=== PATIENT | female | born 1960 | race Caucasian/White ===

== ENCOUNTER 2017-02-05 06:32 | Inpatient (IN) | payer BC ==
[~2017-02-05] VITALS: Ht 163.8 cm; Wt 57.6 kg
[2017-02-05] VITALS (17 sets, daily range): BP systolic 111–144; BP diastolic 66–89
--- NOTE | 2017-02-05 06:12 | Anethesia Preoperative Eval ---
Anesthesia Pre-op PMH/ROS General Date of Evaluation: Feb 05, 2017 Anesthesiologist: Juna Alberto ASA Score: ASA 2 Mallampati Score Class I : Soft palate, uvula, fauces, pillars visible Class II: Soft palate, uvula, fauces visible Class III: Soft palate, base of uvula visible Class IV: Only hard plate visible Mallampati Classification: Class II Surgeon: Apple Diagnosis: Ovarian cysts Surgical Procedure: Open BSO with diagnostic D&C hysteroscopy Anesthesia History: none Family History: no anesthesia problems Allergies: Coded Allergies: PENICILLINS (Verified Allergy, Intermediate, 02/05/17) yeast infection CODEINE (Verified Adverse Reaction, Unknown, vomiting, 02/04/17) Medications: see eMAR Past Medical History Cardiovascular: Reports: other - HLD, Denies: HTN, CAD, [place], valve dz, arrhythmia Pulmonary: Denies: asthma, COPD, MYRA, other Gastrointestinal/Genitourinary: Reports: other - large ovarian cyst, Denies: GERD, CRI, ESRD Neurologic/Psychiatric: Reports: depression/anxiety, Denies: dementia, CVA, TIA, other Endocrine: Denies: DM, hypothyroidism, steroids, other HEENT: Denies: cataract (L), cataract (R), glaucoma, [place] (L), [place] (R), other Hematology/Immune: Denies: anemia, DVT, bleeding disorder, other Musculoskeletal/Integumentary: Denies: OA, RA, DJD, DDD, edema, other PSxH Narrative: Left cataract/cornea transplant Anesthesia Pre-op Phys. Exam Physician Exam see chart Constitutional: NAD Cardiovascular: RRR Respiratory: CTA Airway Exam Mallampati Score: Class II MO: full ROM: full Teeth: intact Anesthesia Pre-op A/P Labs see chart Studies Pre-op Studies: EKG - sr Risk Assessment & Plan Assessment: ASA II Plan: GA Status Change Before Surgery: No Pre-Antibiotics Drug: Cefoxitin 2g Given Within 1 Hr of Incision: Yes Time Given: 07:50 JUDIT BROWN M.D. Feb 05, 2017 06:12
[~2017-02-05 06:32] MED LIST: ALPRAZOLAM1 M2 ORAL; CRESTOR10 M1 ORAL; cefOXitin Sod 2 GM in D5W 55 ML IVPB ONE
--- NOTE | 2017-02-05 07:29 | Pre-Procedure Note/Attestation ---
Pre-Procedure Note/Attestation Complete Prior to Procedure Planned Procedure: not applicable Procedure Narrative: Laparoscopic bilateral salpingoopherectomies, possible laparotomy,possible hysterectomy, possible hysteroscopy Attestation I attest that I discussed the nature of the procedure; its benefits; risks and complications; and alternatives (and the risks and benefits of such alternatives ), prior to the procedure, with the patient (or the patient's legal admitting representative). I attest that, if there was a reasonable possibility of needing a blood transfusion, the patient (or the patient's legal admitting representative) was given the [facility] standardized written summary, pursuant to the Dexter Lauryn Blood Safety Act ([place] Health and Safety Code # 1645, as amended). I attest that I re-evaluated the patient just prior to the surgery and that there has been no change in the patient's H&P, except as documented below: GARTH LEMUS Feb 05, 2017 07:29
[2017-02-05] MEDS ORDERED: LR 1000ml ONE (07:30)
[2017-02-05] MEDS ORDERED: Sterile Water Irrig 1000ml IRRIG ONE (07:30)
[2017-02-05] MEDS ORDERED: Metoclopramide 10mg/2ml Inj IVP PRN ×2 (07:30→08:15)
[2017-02-05] MEDS ORDERED: Lidocaine 1% MPF 10mg/ml 5ml ONE (07:30)
[2017-02-05] MEDS ORDERED: Tylenol #3 tab (300mg/30mg) ORAL PRN (07:30)
[2017-02-05] MEDS ORDERED: Ketorolac 30mg Inj ONE (07:30)
[2017-02-05] MEDS ORDERED: fentaNYL 100 mcg/2 mL IV ONE (07:30)
[2017-02-05] MEDS ORDERED: Dexamethasone 4mg/ml vial ONE (07:30)
[2017-02-05] MEDS ORDERED: Metoclopramide 10mg/2ml Inj ONE (07:30)
[2017-02-05] MEDS ORDERED: Norco 5mg/325mg tab ORAL PRN (07:30)
[2017-02-05] MEDS ORDERED: Midazolam 2mg/2ml Inj ONE (07:30)
[2017-02-05] MEDS ORDERED: Zemuron 50mg/5ml Inj IV ONE (07:30)
[2017-02-05] MEDS ORDERED: DiphenhydrAMINE 50mg/ml Inj IVP PRN ×2 (07:30→08:15)
[2017-02-05] MEDS ORDERED: Propofol 200mg/20ml IV ONE (07:30)
[2017-02-05] MEDS ORDERED: Ropivacaine 5mg/ml Vial 30ml INJ ONE ×2 (07:31→10:17)
[2017-02-05] MEDS ORDERED: NS Irrig 1000ml IRRIG ONE (07:45)
[2017-02-05] MEDS ORDERED: cefOXitin 2gm Inj ONE (07:47)
[2017-02-05] MEDS ORDERED: LR 1000ml 1,000 ML IVLG SCH (08:08)
--- NOTE | 2017-02-05 08:08 | Immediate Post-Op Evaluation ---
Immediate Post-Op Evalulation Immediate Post-Op Evalulation Procedure: Laparoscopic BSO, D&C hysteroscopy Date of Evaluation: Feb 05, 2017 Time of Evaluation: 10:49 IV Fluids: 1.2L Blood Products: 0 Estimated Blood Loss: 50 Urinary Output: 200 Blood Pressure Systolic: 111 Blood Pressure Diastolic: 66 Pulse Rate: 91 Respiratory Rate: 16 O2 Sat by Pulse Oximetry: 100 Temperature (Fahrenheit): 97.4 Pain Score (1-10): 0 Nausea: No Vomiting: No Complications 0 Patient Status: awake, reacts, patent, none Hydration Status: adequate Drug: Cefoxitin 2g Given Within 1 Hr of Incision: Yes Time Given: 07:50 JUDIT BROWN M.D. Feb 05, 2017 08:08
--- NOTE | 2017-02-05 08:10 | 48 Hour Post Anesthesia Eval ---
Post Anesthesia Evaluation Procedure: Laparoscopic BSO, D&C hysteroscopy Date of Evaluation: Feb 05, 2017 Airway: patent Nausea: No Vomiting: No Pain Intensity: 0 Hydration Status: adequate Cardiopulmonary Status: at baseline Mental Status/LOC: patient returned to baseline Post-Anesthesia Complications: 0 Follow-up care needed: ready to discharge JUDIT BROWN M.D. Feb 05, 2017 08:09
[2017-02-05] MEDS ORDERED: Ketorolac 30mg Inj IV PRN (08:15)
[2017-02-05] MEDS ORDERED: fentaNYL 100 mcg/2 mL IV PRN (08:15)
[2017-02-05] MEDS ORDERED: Midazolam 2mg/2ml Inj IVP PRN (08:15)
[2017-02-05] MEDS ORDERED: LORazepam Inj 2mg/ml 1ml IV PRN (08:15)
[2017-02-05] MEDS: D5 1/2NS 1,000 ML IV SCH (13:30)
[2017-02-05] MEDS: HYDROmorphone 1mg/ml Carpuject SUBQ PRN (14:54)
--- NOTE | 2017-02-05 18:20 | General Surgery Progress Note ---
General Surgery-Progress Note Subjective Symptoms: improved, tolerating diet, voiding well, passing flatus Objective Last 24 Hour Vital Signs Date Time Temp Pulse Resp B/P (MAP) Pulse Ox O2 Delivery O2 Flow Rate FiO2 02/05/17 14:33 97.6 74 19 136/89 Nasal Cannula 3.0 02/05/17 14:03 97.5 76 18 131/81 Nasal Cannula 2.0 02/05/17 13:33 97.2 67 18 125/77 97 Nasal Cannula 2.0 02/05/17 12:30 97.0 72 18 132/75 100 Nasal Cannula 3.0 02/05/17 12:15 69 17 128/79 100 Nasal Cannula 3.0 02/05/17 12:00 74 18 137/83 100 Nasal Cannula 3.0 02/05/17 11:45 71 16 131/77 98 Nasal Cannula 3.0 02/05/17 11:30 74 18 128/82 98 Nasal Cannula 3.0 02/05/17 11:20 78 18 134/86 100 Nasal Cannula 3.0 02/05/17 11:10 73 21 144/85 100 Simple Mask 6.0 02/05/17 11:00 82 22 139/85 100 Simple Mask 6.0 02/05/17 10:55 83 19 124/82 100 Simple Mask 6.0 02/05/17 10:50 75 20 127/76 100 Simple Mask 6.0 02/05/17 10:45 91 16 100 02/05/17 10:44 97.4 83 17 111/66 100 Simple Mask 6.0 02/05/17 07:36 97.7 73 20 130/78 100 Room Air I&O Intake and Output 02/05/17 02/06/17 19:00 07:00 Intake Total 2610 ml Output Total 1350 ml Balance 1260 ml Intake Oral 710 ml IV Total 1900 ml Output Urine Total 1300 ml Estimated Blood Loss 50 ml # Voids 2 Dressing: dry Drains: none Extremities: no edema, no tenderness, no cyanosis Plan Additional Comments 23 hour hold discharge in am home with frient history of ETOH consumption and anxiety -- took xanax in the past GARTH LEMUS Feb 05, 2017 18:20
--- NOTE | 2017-02-05 18:23 | Brief Operative Note ---
Immediate Post Operative Note Operative Note Pre-op Diagnosis: left adnexal mass Procedure: laparoscopy, hysteroscopy dilation and curettage, explarotory laparotomy bilateral salpingoopherectomy Post-op Diagnosis: left ovarian mass c/w fibroma Surgeon: anu Pressure Tester: CHRIS Anesthesiologist: STEPHANIE Anesthesia: general Specimen: yes Complications: none Condition: stable Fluids: 2L Estimated Blood Loss: volume - 100CC Drains: none Implant(s) used?: No GARTH LEMUS Feb 05, 2017 18:23
[2017-02-05] MEDS ORDERED: ALPRAZolam 0.5mg tab ORAL PRN (18:30)
[2017-02-05] MEDS ORDERED: oxyCODONE HCL/Acetaminophen 5/325mg ORAL PRN (19:30)
[2017-02-05] MEDS: Ketorolac 30mg Inj IM SCH (20:29)
[2017-02-06] MEDS: HYDROmorphone 1mg/ml Carpuject SUBQ PRN ×3 (00:19→10:32)
[2017-02-06 00:28] VITALS: BP 115/73
[2017-02-06 04:00] VITALS: BP 120/60
[2017-02-06] MEDS: Ketorolac 30mg Inj IM SCH ×2 (06:00)
[2017-02-06] MEDS ORDERED: Sodium Chloride 10ml vial INJ ONE (07:30)
[2017-02-06] MEDS: D5 1/2NS 1,000 ML IV SCH ×2 (09:25)
--- NOTE | 2017-02-08 13:51 | Discharge Summary ---
Discharge Summary Hospital Course Date of Admission Feb 05, 2017 at 06:32 Date of Discharge Feb 06, 2017 at 11:00 Admitting Diagnosis left adnexal mass Reason for Hospitalization: elective surgery HPI Franchesca Arellano is a 57 year old female who was admitted on Feb 05, 2017 at 06: 32 for Large Ovarian Cyst Procedures s/p 02/[address] Chiu laparoscopy, hysteroscopy dilation and curettage, explanatory laparotomy bilateral salpingo-oophorectomy Hospital Course s/p surgery course of recovery uneventful initially with IVF until tolerated diet pain management OOB and ambulate incision C/D/I tolerated diet, a/emetic prn voided freely cleared for dc outpt fup with surgeon DISCHARGE DIAGNOSES left adnexal mass s/p exploratory laparotomy bilateral salpingo -oophorectomy left ovarian mass c/w fibroma Discharge Medications Continued Medications: Alprazolam (Alprazolam) 1 Mg Tab.rapdis 1 MG ORAL BID PRN for For Anxiety, TAB Rosuvastatin Calcium (Crestor) 5 Mg Tablet 10 MG ORAL HS, TAB Discharge Condition Upon Discharge: stable Discharge Disposition Patient was discharged to Home () Discharge Diagnoses: Robin (Nina)Juana NP Feb 08, 2017 13:51
--- NOTE | 2017-02-09 01:46 | Operative Note - Dictated ---
DATE OF OPERATION: 02/05/2017 NOTE: INCOMPLETE DICTATION PREOPERATIVE DIAGNOSIS: Large left ovarian mass. POSTOPERATIVE DIAGNOSIS: Large left ovarian mass plus 12 cm solid left ovarian mass, fibroma on frozen section. PROCEDURE: Laparoscopic bilateral salpingo-oophorectomy, laparotomy, hysteroscopy, dilation and curettage. ANESTHESIA: General endotracheal. ANESTHESIOLOGIST: Milagro Lay M.D. SURGEON: Charley Chiu M.D. LAUNDRY EQUIPMENT OPERATOR: Humera Santiago M.D. ESTIMATED BLOOD LOSS: 100 mL. URINARY OUTPUT: 200 mL. IV FLUIDS: 1.2 liters. PROCEDURE IN DETAIL: After ensuring informed consent, the patient was taken to the operating room. Once general anesthesia was induced, the patient was sterilely prepped and draped and placed in dorsal lithotomy position with legs up in Minesh stirrups. A speculum was placed in the vagina. Cervix was dilated to an 8 Hegar dilator. Hysteroscope was placed inside the uterine cavity. Uterine cavity was sounded to approximately 9 cm. The arias of the uterine cavity were without lesions. Both ostia were observed. Hysteroscope was removed and endometrial sampling was obtained. A HUMI type manipulator was placed inside the uterus. Next, attention was turned to the abdomen where a small incision was made inside the umbilicus. A Veress needle was placed inside the peritoneal cavity. Intraperitoneal placement was confirmed with low opening pressures. Pneumoperitoneum was obtained. Next, a 5 mm trocar was placed inside the peritoneal cavity and intraperitoneal placement was confirmed with laparoscope. Next, pelvis was explored. Large left ovarian mass was visualized, approximately 11 to 12 cm in diameter in the posterior cul-de-sac. Washings were obtained. The goal was to make only a small abdominal incision, thus first washings were obtained and then decision was made to proceed with bilateral ovarian salpingo-oophorectomy. A suprapubic standard 11 mm trocar was placed under direct visualization. Then, the left lateral 5 mm trocar was placed under direct visualization. Next, the left infundibulopelvic ligament was identified, skeletonized by opening up the left around and dissecting the peritoneum. Once it was identified, it was grasped with a bipolar, cauterized, and transected. Next, uteroovarian ligament was likewise grasped, cauterized, and transected. The resection was continued alongside the broad ligament until the whole left adnexa was amputated and placed in the posterior cul-de-sac. Next, attention was turned to the right side. Again, right-sided infundibulopelvic was identified, skeletonized, and transected. Next, uteroovarian and tubes were cauterized and transected. Resection was continued along the broad ligament on the right side until all of the right adnexa was transected. Right adnexa was easily removed with a 10 mm trocar. Next, there was an attempt to place an Endobag and place the mass inside the Endobag, but the Endobag was approximately 10 cm in diameter and the ovarian mass was larger and did not fit. So, decision was made to proceed with a small laparotomy to remove the left adnexa. Skin incision was made with a knife, carried down to the level of the fascia with the Bovie. Fascia was nicked, laterally resected and tented up and both bluntly and sharply dissected from the underlying rectus muscles. Next, the peritoneum was identified, entered sharply. Next, the mass was grasped and brought in to the incision with Ashlee clamps. Once it was outside the body it was morseleted with a knife and completely removed. Pathology was called and asked to perform a frozen section. Next the incision was reapproximated with Karina clamps and laparoscope was reinserted. Perineal cavity was irrigated with 2L of Normal saline and excellent hemostasis was assured at the pedicles. Next the low transverse fascial incision was closed with 0 Vicryl. The subcutaneous tissue was closed with 3.0 plain gut and skin was closed with 3.0 monocryl. The remaining two 5mm trocars were removed under direct visualization. Skin was closed with 3.0 monocryl and steristrips. All instrument and lap counts were correct x2. Patient was taken to recovery area stable and breathing on her own. Charley Chiu M.D. DR: Anastacio JOB#: [id number] CC: DAVIDE
== END 2017-02-06 11:00 | disposition home or self-care (01) | DRG 743 ==
LOC: SDSOVERFLO 06:32 → 3E 12:58
DX: D27.1 Benign neoplasm of left ovary (principal); E78.5 Hyperlipidemia, unspecified; F41.9 Anxiety disorder, unspecified; G47.00 Insomnia, unspecified; Z94.7 Corneal transplant status
CPT/HCPCS: 36415; 51702; 86850; 86900; 86901; 87081; 94003; 94150; 96360; 96361; 96372; J2250; J2405; J2765